=== PATIENT | male | born 1945 | race Caucasian/White ===

== ENCOUNTER → 2021-03-14 10:20 | Outpatient (CLI) | payer MEDICARE, SELFPAY ==
--- NOTE | ~2021-03-14 | XR_ITS ---
XR tibia fibula RT 2V DATE: 03/14/2021 11:02 INDICATION: Leg pain TECHNIQUE: AP and lateral views of right lower leg including knee and ankle joints COMPARISON: None FINDINGS: There is extensive calcification of the femoral, popliteal and anterior and posterior tibia l arteries. No fracture, dislocation, periosteal reaction or bone destruction. Plantar calcaneal enthesopathy. IMPRESSION: Extensive arterial calcifications Plantar calcaneal enthesopathy Reviewed, dictated and finalized at location A.
--- NOTE | ~2021-03-14 | XR_ITS ---
EXAMINATION: XR shoulder LT min 2V DATE: 03/14/2021 11:02 INDICATION: Left shoulder pain TECHNIQUE: AP internally and externally rotated, AP oblique externally rotated and axillary views of the left shoulder were obtained. COMPARISON: None FINDINGS: Normal alignment. No fracture.Mild left acromioclavicular and glenohumeral osteoarthritis. Median st ernotomy wires and mediastinal surgical clips are seen, likely from prior coronary artery bypass payam ting. Visualized portions of the left lung are clear. Soft tissues are unremarkable. IMPRESSION: Mild left acromioclavicular and glenohumeral osteoarthritis. Reviewed, dictated and finalized at location A.
--- NOTE | ~2021-03-14 | XR_ITS ---
XR lumbar spine 2-3V 03/14/2021 11:06 Indication: Low back pain. Procedure: 4 views lumbar spine Comparison: No prior studies for comparison. Findings: There is facet hypertrophy at L4-5 and L5-S1. There is grade 1 degenerative spondylolisthes is at L4-5. Pedicles intact. Sacral foramen are symmetric. There is severe osteoarthritis of the righ t hip. There is a left total hip arthroplasty. Pelvic rings are intact. Atherosclerosis of the aorta. Impression: 1: Moderate lumbar spondylosis with grade 1 spondylolisthesis at L4-5. 2: Severe osteoarthritis of the right hip. Reviewed, dictated and finalized at location A. Impression: 1: Moderate lumbar spondylosis with grade 1 spondylolisthesis at L4-5. 2: Severe osteoarthritis of the right hip.
--- NOTE | ~2021-03-14 | XR_ITS ---
XR thoracic spine 3V DATE: 03/14/2021 11:06 INDICATION: Back pain, lower thoracic area TECHNIQUE: AP, swimmer's, lateral views COMPARISON: None FINDINGS: Diffuse idiopathic skeletal hyperostosis. No fracture or dislocation or bone destruction. The thoracic pedicles are intact. No paraspinal soft tissue thickening. Status post sternotomy and coronary artery bypass graft surgery. IMPRESSION: Diffuse idiopathic skeletal hyperostosis Reviewed, dictated and finalized at location A.
== END ==
PROVIDERS: PCP Physician Assistant; Visit Provider Physician Assistant
DX: M77.31 Calcaneal spur, right foot (principal); M16.11 Unilateral primary osteoarthritis, right hip; M47.896 Other spondylosis, lumbar region; M19.012 Primary osteoarthritis, left shoulder
CPT/HCPCS: 72072; 72100; 73030; 73590

== ENCOUNTER 2022-06-02 11:39 | Outpatient (CLI) | payer MEDICARE, SELFPAY ==
[2022-06-02 18:43] LABS: Basophils Percent Auto 0.8 % (0.2-1.2); Eosinophils Absolute Auto 0.1 K/mm3 (0-0.3); Eosinophils Percent Auto 2.3 % (0-4.4); Hemoglobin 15.3 g/dL (14.0-18.0); Immature Granulocyte Absolute 0.01 K/mm3 (0.00-0.031); Immature Granulocyte Percent A 0.2 % (0-0.5); Lymphocytes Absolute Auto 2.03 K/mm3 (0.9-3.2); Lymphocytes Percent Auto 38.1 % (18.3-44.2); Mean Corpuscular HGB Conc 31.9 g/dl (32-36); Mean Corpuscular Hemoglobin 29.4 pg (26-34); Mean Corpuscular Volume 92.3 fl (80-100); Mean Platelet Volume 12.2 fl (7.4-10.4); Monocytes Absolute Auto 0.4 K/mm3 (0.1-0.6); Monocytes Percent Auto 8.1 % (2.6-8.5); Neutrophils Absolute Auto 2.7 K/mm3 (1.3-6.7); Neutrophils Percent Auto 50.5 % (45.5-73.1); Platelet Count Result 201 k/mm3 (150-375); Red Cell Distribution Width 13.3 % (11.5-14.5); White Blood Count 5.3 K/mm3 (4.5-10.0)
[2022-06-02 19:08] LABS: Alanine Aminotransferase 17 U/L (6-50); Albumin Level 4.9 g/dL (3.5-5.1); Alkaline Phosphatase 81 U/L (38-126); Anion Gap 10 mmol/L (8-16); Aspartate Amino Transferase 31 U/L (17-59); Bilirubin,Total 0.8 mg/dL (0.2-1.3); Blood Urea Nitrogen 15 mg/dL (9-20); Calcium 10.2 mg/dL (8.4-10.2); Carbon Dioxide 27 mmol/L (22-30); Chloride 104 mmol/L (98-107); Cholesterol 133 mg/dL (0-200); Estimated Glomerular Filt Rate > 60; Glucose 122 mg/dL (65-110); HDL Direct 45 mg/dL; Potassium 4.2 mmol/L (3.4-5.0); Sodium 141 mmol/L (137-145); Triglycerides 101 mg/dL (<150)
[2022-06-02 19:18] LABS: LDL Cholesterol Direct 62 mg/dL
[2022-06-02 19:28] LABS: Hemoglobin A1C 5.7 % (<5.7)
[2022-06-02 19:38] LABS: Prostate Specific Antigen 0.4 ng/mL (< OR = 4.0)
== END 2022-06-02 11:40 | disposition home or self-care (01) ==
PROVIDERS: PCP Emergency Medicine; Visit Provider Physician Assistant
DX: E11.59 Type 2 diabetes mellitus with other circulatory complications (principal); I10 Essential (primary) hypertension; I25.10 Atherosclerotic heart disease of native coronary artery without angina pectoris; I25.5 Ischemic cardiomyopathy; Z12.5 Encounter for screening for malignant neoplasm of prostate
CPT/HCPCS: 36415; 80053; 80061; 83036; 84153; 84443; 85025; G0103

== ENCOUNTER 2023-06-11 11:11 | Outpatient (CLI) | payer MEDICARE, SELFPAY ==
[2023-06-11 19:15] LABS: Alanine Aminotransferase 20 U/L (6-50); Albumin Level 4.3 g/dL (3.5-5.1); Alkaline Phosphatase 62 U/L (38-126); Anion Gap 7 mmol/L (8-16); Aspartate Amino Transferase 35 U/L (17-59); Blood Urea Nitrogen 14 mg/dL (9-20); Carbon Dioxide 31 mmol/L (22-30); Chloride 102 mmol/L (98-107); Cholesterol 119 mg/dL (0-200); Estimated Glomerular Filt Rate > 60; Glucose 108 mg/dL (65-110); HDL Direct 40 mg/dL; Potassium 5.3 mmol/L (3.4-5.0); Sodium 140 mmol/L (137-145); Triglycerides 83 mg/dL (<150)
[2023-06-11 19:26] LABS: LDL Cholesterol Direct 67 mg/dL
[2023-06-11 19:44] LABS: Basophils Absolute Auto 0.1 K/mm3 (0.0-0.1); Basophils Percent Auto 0.8 % (0.2-1.2); Eosinophils Absolute Auto 0.1 K/mm3 (0-0.3); Eosinophils Percent Auto 1.4 % (0-4.4); Hematocrit 46.5 % (42.0-52.0); Hemoglobin 14.9 g/dL (14.0-18.0); Immature Granulocyte Absolute 0.01 K/mm3 (0.00-0.031); Immature Granulocyte Percent A 0.2 % (0-0.5); Lymphocytes Absolute Auto 1.79 K/mm3 (0.9-3.2); Lymphocytes Percent Auto 28.6 % (18.3-44.2); Mean Corpuscular Hemoglobin 30.8 pg (26-34); Mean Corpuscular Volume 96.1 fl (80-100); Mean Platelet Volume 12.2 fl (7.4-10.4); Monocytes Absolute Auto 0.4 K/mm3 (0.1-0.6); Neutrophils Absolute Auto 3.9 K/mm3 (1.3-6.7); Platelet Count Result 189 k/mm3 (150-375); Red Blood Count 4.84 M/mm3 (4.6-6.20); Red Cell Distribution Width 13.9 % (11.5-14.5); White Blood Count 6.3 K/mm3 (4.5-10.0)
[2023-06-11 21:12] LABS: Hemoglobin A1C 5.9 % (<5.7)
== END 2023-06-11 11:12 | disposition home or self-care (01) ==
PROVIDERS: PCP Emergency Medicine; Visit Provider Emergency Medicine
DX: E11.9 Type 2 diabetes mellitus without complications (principal); R53.83 Other fatigue; I10 Essential (primary) hypertension
CPT/HCPCS: 36415; 80053; 80061; 83036; 84443; 85025